=== PATIENT | female | born 1975 | race Caucasian/White ===

== ENCOUNTER → 2019-08-09 | Outpatient (CLI) | payer OTHER | LOC: MRI 10:16 | DX: N28.1 Cyst of kidney, acquired (principal); N88.8 Other specified noninflammatory disorders of cervix uteri; M51.37 Other intervertebral disc degeneration, lumbosacral region ==

== ENCOUNTER → 2019-09-06 | Outpatient (CLI) | payer OTHER | LOC: RAD 12:08 | DX: M47.812 Spondylosis without myelopathy or radiculopathy, cervical region (principal); M54.6 Pain in thoracic spine ==

== ENCOUNTER → 2019-10-02 | Outpatient (CLI) | payer OTHER | LOC: MRI 09:14 | DX: M48.02 Spinal stenosis, cervical region (principal); M50.122 Cervical disc disorder at C5-C6 level with radiculopathy; M89.38 Hypertrophy of bone, other site; M25.78 Osteophyte, vertebrae; M51.9 Unspecified thoracic, thoracolumbar and lumbosacral intervertebral disc disorder ==